=== PATIENT | male | born 1955 | race Caucasian/White ===

== ENCOUNTER 2024-04-28 01:42 | Emergency (ER) | payer OTHER ==
[~2024-04-28] VITALS: Ht 185.4 cm; Wt 109.0 kg
[2024-04-28] MEDS: MORPHINE SULFATE INJ 2 MG/ml SYRG IV ONE ×2 (02:47→03:07)
[2024-04-28] MEDS: ONDANSETRON HCL 4 MG/2 ML VIAL IV ONE ×3 (02:47→07:52)
[2024-04-28] MEDS: SODIUM CHLORIDE 0.9% 1,000 ML IV ONE (02:48)
[2024-04-28 02:50] LABS: Alanine Aminotransferase 12 U/L (7-40); Albumin 4.3 g/dL (3.2-4.8); Alkaline Phosphatase 104 U/L (46-116); Anion Gap 9 (5-15); Aspartate Aminotransferase 17 U/L (13-40); BUN/Creatinine Ratio 8.8 (10.0-20.0); Bilirubin, Total 0.7 mg/dL (0.2-1.0); Blood Urea Nitrogen 11 mg/dL (9-23); Calcium 9.6 mg/dL (8.7-10.4); Carbon Dioxide 25 mmol/L (20-30); Chloride 107 mmol/L (98-107); Glucose 155 mg/dL (74-106); Lipase 27 U/L (12-53); Potassium 3.9 mmol/L (3.5-5.1); Sodium 141 mmol/L (136-145); Total Protein 7.4 g/dL (5.7-8.2)
[2024-04-28 03:07] LABS: Basophils # (auto) 0 10 ^3/uL (0-0.2); Basophils % (auto) 0.4 % (0.0-2.0); Eosinophils # (auto) 0.1 10 ^3/uL (0-0.8); Eosinophils % (auto) 1.9 % (0.0-7.0); Hematocrit 47.4 % (41.0-53.0); Hemoglobin 15.9 g/dL (13.5-17.5); Lymphocytes # (auto) 1.1 10 ^3/uL (0.4-5.4); Lymphocytes % (auto) 13.7 % (10.0-50.0); Mean Corpuscular Hemoglobin 29.8 pg (28.0-32.0); Mean Corpuscular Hgb Conc. 33.6 g/dL (32.0-36.0); Mean Corpuscular Volume 88.7 fL (80.0-100.0); Monocytes # (auto) 0.2 10 ^3/uL (0-1.3); Monocytes % (auto) 2.1 % (0.0-12.0); Neutrophils # (auto) 6.4 10 ^3/uL (1.6-8.6); Neutrophils % (auto) 81.9 % (37.0-80.0); Nucleated Red Blood Cells % 0.1 %; Red Blood Cells 5.34 10^6/uL (4.5-5.90); Red Cell Distribution Width 15.4 % (11.8-14.3); White Blood Cell 7.8 10^3/uL (4.4-10.8)
[2024-04-28] MEDS: MORPHINE SULFATE 4 MG/ML SYR/VIAL IV ONE (07:51)
[2024-04-28 07:55] VITALS: PULSE 96; RESP 16; O2SAT 93
[2024-04-28 09:40] VITALS: BP 112/79; PULSE 102; RESP 18; TEMP 98.7; O2SAT 94
== END 2024-04-28 09:58 | disposition short-term general hospital (02) ==
LOC: EDUNIT# 01:42 → EDBD 01:42 → ER 01:42
DX: K56.609 Unspecified intestinal obstruction, unspecified as to partial versus complete obstruction (principal); E78.5 Hyperlipidemia, unspecified
CPT/HCPCS: 36415; 71045; 74176; 80053; 83690; 84484; 85025; 93005; 96361; 96374; 96375; 96376; 99285; J2270; J2405; J7030